=== PATIENT | male | born 1945 | race Caucasian/White ===

== ENCOUNTER 2018-01-15 11:20 | Emergency (ER) | payer MEDICARE ==
[~2018-01-15] VITALS: Ht 182.9 cm; Wt 90.7 kg
[2018-01-15] MEDS ORDERED: EFFEXOR 5050 MG/1 T1 PO (11:37)
[2018-01-15] MEDS ORDERED: TOPROL XL25 MG PO (11:38)
[2018-01-15] MEDS ORDERED: TRIGLIDE160 MG PO (11:38)
[2018-01-15] MEDS ORDERED: LAMICTAL100 MG PO (11:39)
[2018-01-15] MEDS ORDERED: URECHOLINE 10 M10 M1 PO (11:39)
[2018-01-15] MEDS ORDERED: RISPERDAL 1 MG T1 MG PO (11:40)
[2018-01-15] MEDS ORDERED: PROSCAR 5MG TABL5 MG PO (11:40)
[2018-01-15] MEDS ORDERED: CARDURA4 MG PO (11:41)
[2018-01-15] MEDS ORDERED: COUMADIN7.5 MG PO (11:41)
[2018-01-15] MEDS ORDERED: LISINOPRIL20 MG PO (11:41)
[2018-01-15] MEDS ORDERED: LASIX 40 MG TAB40 M2 PO (11:41)
[2018-01-15] MEDS ORDERED: LIPITOR10 MG PO (11:42)
[2018-01-15] MEDS ORDERED: NORVASC5 MG PO (11:42)
[2018-01-15] MEDS ORDERED: PLAVIX 75 MG TA75 M1 PO (11:42)
[2018-01-15 11:59] LABS: URINE BILIRUBIN NEGATIVE (Negative); URINE BLOOD NEGATIVE (Negative); URINE CLARITY CLEAR; URINE COLOR YELLOW; URINE GLUCOSE-RANDOM NEGATIVE (Negative); URINE KETONES NEGATIVE (Negative); URINE LEUKOCYTES-REFLEX NEGATIVE (Negative); URINE NITRITE-REFLEX NEGATIVE (Negative); URINE PROTEIN NEGATIVE (Negative); URINE UROBILINOGEN 0.2 E.U./dl (0.2-1.0)
[2018-01-15 12:04] LABS: ABSOLUTE EOSINOPHILS 0.1 thou/uL (0.0-0.7); ABSOLUTE LYMPHOCYTES 0.9 thou/uL (0.8-5.3); ABSOLUTE MONOCYTES 0.4 thou/uL (0.0-1.2); ABSOLUTE NEUTROPHILS 4.1 thou/uL (1.6-8.1); BASOPHILS 0.8 %; EOSINOPHILS 1.9 %; HEMATOCRIT 37.1 % (42.0-52.0); HEMOGLOBIN 12.5 gm/dL (14.0-18.0); LYMPHOCYTES 16.1 %; MCH 29.5 pg (26.0-34.0); MCHC 33.6 g/dL (28.0-37.0); MCV 87.8 fL (80.0-100.0); MONOCYTES 7.4 %; NUCLEATED RBCS 0 /100WBC; PLATELET COUNT* 202 thou/uL (150-400); POLYS 73.8 %; RBC 4.22 mil/uL (4.50-6.00); RDW-CV 15.7 % (10.5-14.5); WBC 5.6 thou/uL (4.0-11.0)
[2018-01-15 12:08] LABS: AMP/METHAMP Negative (Negative); BARBITURATES Negative (Negative); BENZODIAZEPINES Negative (Negative); COCAINE Negative (Negative); METHADONE Negative (Negative); OPIATES Negative (Negative); PCP Negative (Negative); THC Negative (Negative)
[2018-01-15 12:21] LABS: CALCIUM 9.6 mg/dL (8.5-10.1); CREATININE 2.1 mg/dL (0.6-1.3); POTASSIUM 4.7 mmol/L (3.5-5.1)
[2018-01-15 12:26] LABS: TOTAL BILIRUBIN 0.5 mg/dL (<0.1-1.0); TOTAL PROTEIN 7.4 g/dL (6.4-8.2)
[2018-01-15 12:38] LABS: ACETAMINOPHEN < 2 ug/mL (10-30); ALCOHOL < 10 mg/dL (<10); SALICYLATE < 2.8 mg/dL (2.8-20.0)
[2018-01-15 16:52] LABS: INR 2.2; PROTIME 21.1 Seconds (9.20-11.50)
[2018-01-15 18:28] VITALS: BP 144/88
== END 2018-01-15 18:29 | disposition short-term general hospital (02) ==
LOC: M.ERS 11:20
PROVIDERS: Emergency Medicine Emergency Medical Services
DX: R45.851 Suicidal ideations (principal); Z88.0 Allergy status to penicillin

== ENCOUNTER 2018-01-25 23:25 | Emergency (ER) | payer MEDICARE ==
[~2018-01-25] VITALS: Ht 182.9 cm; Wt 86.2 kg
[~2018-01-25 23:25] MED LIST: CARDURA4 MG PO; COUMADIN7.5 MG PO; EFFEXOR 5050 MG/1 T1 PO; LAMICTAL100 MG PO; LASIX 40 MG TAB40 M2 PO; LIPITOR10 MG PO; LISINOPRIL20 MG PO; NORVASC5 MG PO; PLAVIX 75 MG TA75 M1 PO; PROSCAR 5MG TABL5 MG PO; RISPERDAL 1 MG T1 MG PO; TOPROL XL25 MG PO; TRIGLIDE160 MG PO; URECHOLINE 10 M10 M1 PO
[2018-01-25 23:54] LABS: ABSOLUTE EOSINOPHILS 0.2 thou/uL (0.0-0.7); ABSOLUTE LYMPHOCYTES 1.1 thou/uL (0.8-5.3); ABSOLUTE MONOCYTES 0.6 thou/uL (0.0-1.2); ABSOLUTE NEUTROPHILS 5.2 thou/uL (1.6-8.1); BASOPHILS 0.6 %; EOSINOPHILS 2.1 %; HEMATOCRIT 35.5 % (42.0-52.0); HEMOGLOBIN 12.1 gm/dL (14.0-18.0); LYMPHOCYTES 15.5 %; MCH 29.8 pg (26.0-34.0); MCV 87.6 fL (80.0-100.0); MONOCYTES 8.7 %; MPV 7.7 fl. (7.2-11.1); NUCLEATED RBCS 0 /100WBC; PLATELET COUNT* 174 thou/uL (150-400); POLYS 73.1 %; RBC 4.05 mil/uL (4.50-6.00); WBC 7.2 thou/uL (4.0-11.0)
[2018-01-26 00:01] LABS: ANION GAP 10 mmol/L (7-16); BUN 33 mg/dL (7-18); CALCIUM 9.2 mg/dL (8.5-10.1); CHLORIDE 105 mmol/L (98-107); CO2 27 mmol/L (21-32); CREATININE 2.1 mg/dL (0.6-1.3); GLUCOSE 134 mg/dL (70-99); POTASSIUM 3.6 mmol/L (3.5-5.1); SODIUM 142 mmol/L (136-145)
[2018-01-26 00:03] LABS: INR 2.2; PROTIME 21.5 Seconds (9.20-11.50)
[2018-01-26 00:21] LABS: ALBUMIN 3.6 g/dL (3.4-5.0); ALKALINE PHOSPHATASE 50 U/L (46-116); SGOT 20 U/L (15-37); SGPT 25 U/L (30-65); TOTAL BILIRUBIN 0.3 mg/dL (<0.1-1.0); TOTAL PROTEIN 6.8 g/dL (6.4-8.2); TROPONIN-I LEVEL <0.06 ng/mL (<0.06)
[2018-01-26 02:12] VITALS: BP 162/82
--- NOTE | 2018-01-26 11:46 | EKG ---
[place] [address] ELECTROCARDIOGRAM REPORT Name: DEVIN TELLO [id number] Admission: 01/25/18 Attend Phys: Discharge: 01/26/18 Date of : 45 Report #: [id number] THIS REPORT FOR: //name// [facility] ED Test Date: 2018-01-25 Test Time: 23:36:28 Pat Name: DEVIN TELLO Department: Room: Gender: M [employer]: LYNDSAY : 1945 Requested By: Alem Maciel Order Number: [id number] MD: Davi Aquion Measurements Intervals [place] Rate: 100 P: [place]: QRS: -16 QRSD: 160 T: 43 QT: 377 QTc: 487 Interpretive Statements Atrial fibrillation Right bundle branch block No previous ECG available for comparison Electronically Signed On 01-26-2018 11:46:12 CDT by Davi Aquino [email or web address] <ELECTRONICALLY SIGNED> By: Davi Aquino MD, [facility] 01/26/18 [id number] Davi Aquino MD, FACC /EPI
== END 2018-01-26 02:14 | disposition home or self-care (01) ==
LOC: M.ERS 23:25
PROVIDERS: Emergency Medicine
DX: I48.91 Unspecified atrial fibrillation (principal); F32.9 Major depressive disorder, single episode, unspecified; Z91.5 Personal history of self-harm; Z88.0 Allergy status to penicillin

== ENCOUNTER 2018-01-26 21:39 | Emergency (ER) | payer MEDICARE ==
[~2018-01-26] VITALS: Ht 182.9 cm; Wt 86.2 kg
[2018-01-26 22:07] LABS: URINE BILIRUBIN NEGATIVE (Negative); URINE BLOOD NEGATIVE (Negative); URINE CLARITY CLEAR; URINE COLOR YELLOW; URINE GLUCOSE-RANDOM NEGATIVE (Negative); URINE KETONES NEGATIVE (Negative); URINE LEUKOCYTES-REFLEX NEGATIVE (Negative); URINE NITRITE-REFLEX NEGATIVE (Negative); URINE PROTEIN NEGATIVE (Negative); URINE UROBILINOGEN 0.2 E.U./dl (0.2-1.0)
[2018-01-26 22:10] LABS: ABSOLUTE BASOPHILS 0.1 thou/uL (0.0-0.2); ABSOLUTE EOSINOPHILS 0.2 thou/uL (0.0-0.7); ABSOLUTE LYMPHOCYTES 1.3 thou/uL (0.8-5.3); ABSOLUTE MONOCYTES 0.6 thou/uL (0.0-1.2); ABSOLUTE NEUTROPHILS 4.8 thou/uL (1.6-8.1); BASOPHILS 0.9 %; EOSINOPHILS 2.5 %; HEMATOCRIT 39.3 % (42.0-52.0); HEMOGLOBIN 13.2 gm/dL (14.0-18.0); LYMPHOCYTES 18.5 %; MCH 29.8 pg (26.0-34.0); MCHC 33.7 g/dL (28.0-37.0); MCV 88.2 fL (80.0-100.0); MONOCYTES 8.5 %; MPV 7.8 fl. (7.2-11.1); NUCLEATED RBCS 0 /100WBC; PLATELET COUNT* 194 thou/uL (150-400); POLYS 69.6 %; RBC 4.45 mil/uL (4.50-6.00); RDW-CV 15.1 % (10.5-14.5); WBC 6.9 thou/uL (4.0-11.0)
[2018-01-26 22:27] LABS: CALCIUM 9.7 mg/dL (8.5-10.1); CREATININE 1.8 mg/dL (0.6-1.3); POTASSIUM 3.8 mmol/L (3.5-5.1)
[2018-01-26 22:32] LABS: ALBUMIN 4.3 g/dL (3.4-5.0); TOTAL BILIRUBIN 0.5 mg/dL (<0.1-1.0); TOTAL PROTEIN 7.5 g/dL (6.4-8.2)
[2018-01-27 01:21] VITALS: BP 150/81
--- NOTE | 2018-01-27 10:37 | EKG ---
[place] [address] ELECTROCARDIOGRAM REPORT Name: DEVIN TELLO [id number] Admission: 01/26/18 Attend Phys: Discharge: 01/27/18 Date of : 45 Report #: [id number] THIS REPORT FOR: //name// [facility] ED Test Date: 2018-01-26 Test Time: 22:19:52 Pat Name: DEVIN TELLO Department: Room: Gender: M Malariologist: MICHELLE Middleton : 1945 Requested By: Alem Maciel Order Number: [id number] MD: Davi Aquino Measurements Intervals [place] Rate: 82 P: [place]: QRS: -11 QRSD: 160 T: 32 QT: 424 QTc: 496 Interpretive Statements Atrial fibrillation Right bundle branch block Compared to ECG 01/25/2018 23:36:28 No significant changes Electronically Signed On 01-27-2018 10:37:26 CDT by Davi Aquino [email or web address] <ELECTRONICALLY SIGNED> By: Davi Aquino MD, [facility] 01/27/18 1037 [id number] 18 Davi Aquino MD, FACC /EPI
== END 2018-01-27 01:00 | disposition home or self-care (01) ==
LOC: M.ERS 21:39
PROVIDERS: Emergency Medicine
DX: R11.0 Nausea (principal); R10.33 Periumbilical pain; I48.91 Unspecified atrial fibrillation; F32.9 Major depressive disorder, single episode, unspecified; Z91.5 Personal history of self-harm; Z88.0 Allergy status to penicillin